=== PATIENT | male | born 1970 | race Caucasian/White ===

== ENCOUNTER 2017-02-05 15:30 | Emergency (ER) | payer OTHER ==
[2017-02-05] MEDS ORDERED: KETOROLAC TROMETHAMINE 30 MG/ML VIAL ONE (16:55)
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
--- NOTE | 2017-02-06 13:52 | RADIOLOGY REPORT ---
Two views of the left forearm demonstrate a transverse mid shaft fracture of the left radius. There is volar and ulnar displacement with approximately 2 cm of overriding. The ulna appears intact. Question integrity of the distal radial ulnar joint considering the proximal displacement of the radius. The limited views of the elbow appear unremarkable. IMPRESSION: Displaced mid shaft fracture of the left radius as described. If clinically indicated, further evaluation of the distal radioulnar joint may be of benefit. MTDD
== END 2017-02-05 17:37 | disposition home or self-care (01) ==
LOC: ER 15:30
DX: S52.302A Unspecified fracture of shaft of left radius, initial encounter for closed fracture (principal); V86.59XA Driver of other special all-terrain or other off-road motor vehicle injured in nontraffic accident, initial encounter; Y92.838 Other recreation area as the place of occurrence of the external cause; R94.31 Abnormal electrocardiogram [ECG] [EKG]
CPT/HCPCS: 29125; 93005; 96374; 96375; 99284; J1885

== ENCOUNTER 2017-02-07 06:34 | Day surgery (SDC) | payer OTHER ==
[~2017-02-07 06:34] MED LIST: ceFAZolin 1 GM in NORMAL SALINE MINI-BAG+ 100 ML IV ONE
[2017-02-07] MEDS ORDERED: BACITRACIN 14 APP/14 GM TUBE TOPICAL ONE (07:04)
[2017-02-07] MEDS ORDERED: BUPIVACAINE/EPI 0.25% 1 VIAL VIAL ONE (07:04)
[2017-02-07] MEDS ORDERED: NORMAL SALINE FLUSH 10 ML ONE (07:04)
[2017-02-07] MEDS ORDERED: BACITRACIN 50,000 UNITS VIAL IM ONE (07:04)
[2017-02-07] MEDS ORDERED: ceFAZolin 1 GM in NORMAL SALINE MINI-BAG+ 100 ML IV ONE (07:18)
[2017-02-07] MEDS ORDERED: LIDOCAINE HCL 1% 20 ML VIAL SUBCUT ONE (07:18)
[2017-02-07] MEDS ORDERED: MIDAZOLAM HCL 2 MG/2 ML SYR IV ONE (07:18)
[2017-02-07] MEDS ORDERED: FAMOTIDINE IN SALINE, ISO-OSM 50 ML IV ONE (07:24)
[2017-02-07] MEDS ORDERED: ceFAZolin 1 GM/10 ML VIAL ONE (07:25)
[2017-02-07] MEDS ORDERED: MIDAZOLAM HCL 2 MG/2 ML VIAL ONE (07:25)
[2017-02-07] MEDS ORDERED: ACETAMINOPHEN 1,000 MG/100 ML VIAL IV ONE (07:25)
[2017-02-07] MEDS ORDERED: ACETAMINOPHEN 1,000 MG/100 ML VIAL IV SCH (07:30)
[2017-02-07] MEDS ORDERED: FAMOTIDINE IN SALINE, ISO-OSM 20 MG/50 ML PIGGYBACK IV SCH (07:30)
[2017-02-07] MEDS ORDERED: DEXAMETHASONE 4 MG/ML VIAL ONE (07:34)
[2017-02-07] MEDS ORDERED: ONDANSETRON HCL 4 MG/2 ML VIAL ONE (07:34)
[2017-02-07] MEDS ORDERED: FENTANYL 100 MCG/2 ML VIAL ONE ×2 (07:34→09:44)
[2017-02-07] MEDS ORDERED: KETOROLAC TROMETHAMINE 30 MG/ML VIAL ONE (07:35)
[2017-02-07] MEDS ORDERED: LACTATED RINGERS 1,000 ML IV SCH (08:00)
--- NOTE | 2017-02-07 10:34 | RADIOLOGY REPORT ---
Three limited views of the left forearm from the C-Arm in the operating room are compared with prior films dated 02/05/2017. There has been interval open reduction and internal fixation of the radial shaft fracture, which is secured with a plate and multiple screws. No other abnormality is identified. IMPRESSION: Interval open reduction and internal fixation of the left radial shaft fracture. [facility]
[2017-02-07] MEDS ORDERED: HYDROmorphone HCL 1 MG/ML SYR ONE (10:40)
[2017-02-07] MEDS ORDERED: HYDROmorphone HCL 1 MG/ML SYR IV PRN (10:41)
[2017-02-07 10:59] VITALS: TEMP 98.2
[2017-02-07 11:53] VITALS: BP 128/72; PULSE 62; RESP 16; O2SAT 89
--- NOTE | 2017-02-07 18:56 | RADIOLOGY REPORT ---
Views of the left wrist are compared with prior films dated 02/05/2017. There has been interval reduction of the distal radial ulnar joint with transverse pinning of the distal radius and ulna. No other change is identified. IMPRESSION: Interval reduction and pinning of the left distal radius and ulna. [facility]
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
--- NOTE | 2017-02-11 14:23 | OPERATIVE REPORT ---
DATE OF SURGERY: 02/07/17 SURGEON: Charan Diaz DO ANESTHESIA: General. PREOPERATIVE DIAGNOSIS: Left Galeazzi fracture. POSTOPERATIVE DIAGNOSIS: Left Galeazzi fracture. OPERATION PERFORMED: Left radius open reduction, internal fixation with pinning of the distal radial ulnar joint. ESTIMATED BLOOD LOSS: Minimal. COMPLICATIONS: None. TOTAL TOURNIQUET TIME: 82 minutes. ORTHOPEDIC IMPLANT 1. Synthes LCBC 35 plate. 2. Demineralized bone matrix putty 1 mL from the musculoskeletal transplant foundation, item #[id number], serial #[id number]. PROCEDURE NOTE: The patient was brought to the operating room suite and after administration of general anesthesia the left upper extremity was prepped and draped in a sterile fashion after applying a well padded tourniquet to the left proximal arm. An Esmarch bandage was not utilized to maintain the anatomy of the vasculature. An incision was made directly over the treatment site which was in line with the lateral aspect of the biceps tendon at the antecubital fossa and the radial styloid. The volar incision was made just a few centimeters than a 7-hole plate. Dissection was carried down through the skin. Any small bleeders were cauterized with a bipolar device. The forearm fascia was incised and the interval was identified between the flexor carpi radialis and the brachioradialis. The cutaneous nerve was kept out of the field as was the radial artery with its 2 veins. The small communicating vessels, which were perforating the muscle, were cauterized with a bipolar device. The arm was taken into pronation and the pronator teres was noted and it was also noted that the flexor pollicis longus was torn off its musculotendinous junction by about 75% of the fibers. The fracture was immediately visible within the field and dissection was carried down bluntly through the fibers of the pronator teres. Some gentle periosteal stripping was performed a few millimeters on each side of the fracture site to identify the ends of the fracture. A butterfly fragment with no soft tissue attachment was removed from the field. The ends of the bone were in bayonet apposition and were cureted of hematoma material and irrigated copiously with bacitracin infused with normal saline. Utilizing traction, the fracture was reduced and a 7-hole plate was positioned and predrilled with appropriate length screws and locked into place with both locking and unlocking screws. Orthogonal and fluoroscopic imaging confirmed excellent anatomic reduction and good cortical purchase with 12 cortices of purchase with 3 screws on each side of the fracture. The distal ulnar radial joint was then visualized and there was some diastasis and instability here with a shuck maneuver, therefore it was pinned percutaneously through both bones just proximal to the distal radial ulnar joint in supination. Jurgans balls were placed. The incision was closed with 0 Vicryl for the forearm fascia , followed by 3-0 Vicryl, followed by 3-0 Monocryl subcutaneously with Benzoin and Steri-Strips for dressing. The pins were dressed with bacitracin ointment, Xeroform, 4x4s, fluffs, cast padding and a posterior and volar plaster splint held in supination with the elbow at 90 degrees. Patient's arm was positioned in a sling, and he was transferred from the OR suite to the recovery room in stable condition. The patient did receive 1 gram of Ancef prior to insufflation of the tourniquet and prior to anesthesia. MICKY
== END 2017-02-07 12:00 | disposition home or self-care (01) ==
LOC: SDS 06:34
PROVIDERS: ATTEND Orthopaedic Surgery
DX: S52.372A Galeazzi's fracture of left radius, initial encounter for closed fracture (principal); V86.59XA Driver of other special all-terrain or other off-road motor vehicle injured in nontraffic accident, initial encounter
CPT/HCPCS: 76000; C1713; J0690; J1170; J1885; J2250; J2405; J2550